=== PATIENT | female | born 1975 | race Caucasian/White ===

== ENCOUNTER → 2021-04-25 | Outpatient (CLI) | payer BC ==
--- NOTE | 2021-04-25 16:04 | RAD ---
EXAM: Pelvic ultrasound HISTORY: Cervical mass, fibroids, intrauterine device. COMPARISON: None. FINDINGS: Sonographic evaluation of the pelvis was performed transabdominally. The uterus is anteverted and measures 9.7 x 5.5 x 4.2 cm. And intrauterine device is in expected posi tion. The endometrial stripe measures 5 mm. A solid hypoechoic mass along the anterior/left aspect of the lower uterine segment or proximal cervix measures 2.4 x 2.1 cm. There is no significant free flu id. The right ovary measures 3.1 x 2.3 x 2.1 cm. The left ovary is not visualized currently. There is nor mal Doppler flow bilaterally. There are no suspicious lesions. IMPRESSION: 1. A 2.4 cm mass along the anterior/left aspect of the lower uterine segment or cervix is likely an e xophytic fibroid. Follow-up could be performed in 3 months if there is persistent concern. 2. The left ovary is obscured currently. Electronically signed by: Maritza Causey MD (04/25/2021 4:02 PM) [id number]
== END ==
LOC: US 14:00
PROVIDERS: ATTEND Nurse Practitioner Women's Health
DX: N88.8 Other specified noninflammatory disorders of cervix uteri (principal); D25.9 Leiomyoma of uterus, unspecified
CPT/HCPCS: 76856